=== PATIENT | female | born 1980 | race Caucasian/White ===

== ENCOUNTER 2016-11-19 11:24 | Emergency (ER) | payer BC ==
[2016-11-19 11:53] VITALS: BP 153/96
[2016-11-19] MEDS ORDERED: Aspirin Low Dose CHEW TAB* 81 MG PO ONE (12:14)
--- NOTE | 2016-11-19 14:20 | UC ---
Gato Chapman Adam, scribed for Kelsea Oliveira DO on 11/19/16 at 1155 . Cardiac HPI - HPI Summary HPI Summary: Pt is a 36 year old female presenting with chest pain. She states that she was having nausea and loose stool yesterday and struggled to get through her work shift. Sometime after she got home at 19:00 yesterday she began to have chest pain. It is located across the upper region of her chest. She also reports some SOB associated with the CP. She states that she has been having rhinorrhea for the past few weeks. She denies any dizziness, sore throat, ear ache, rash, left neck/jaw/arm pain, n/v/d/abd pain or HERNANDEZ. The pt started getting migraines approximately 1 month ago and after going to her doctor she was sent to a metal bonding worker. She had an echo, stress test, and blood work which were all normal. She has been wearing a monitor for 2 weeks (and will have it for 1 more week) to evaluate the electrical function of her heart. 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 - History of Current Complaint Stated Complaint: CHEST PAIN Hx Obtained From: Patient, Family/Sand Cutter Onset/Duration: Sudden Onset, Lasting Days, Still Present Initial Severity: Moderate Current Severity: Mild Chest Pain Location: Diffuse - Upper and mid chest Character: Dull/Aching Aggravating: Deep Breaths Alleviating: Nothing Associated Signs & Symptoms: Positive: Chest Pain, SOB, Nausea/Vomiting - Allergy/Home Medications Allergies/Adverse Reactions: Allergies Allergy/AdvReac Type Severity Reaction Status Date / Time Meloxicam Allergy Severe Anaphylatic Verified 06/12/15 20:37 Shock Hydrocodone [From Lortab] Allergy Mild Nausea Verified 06/12/15 20:37 Sulfamethoxazole Allergy Rash Verified 06/12/15 20:37 w/Trimethoprim [From Bactrim] Home Medications: Home Medications Multiple Vitamin [Multi Vitamin] 11/19/16 [History] PMH/Surg Hx/FS Hx/Imm Hx Endocrine History Of: Denies: Diabetes, Thyroid Disease Cardiovascular History Of: Denies: Cardiac Disorders, Hypertension Respiratory History Of: Reports: Asthma - seasonal Denies: COPD GI/ History Of: Denies: Ulcer - Surgical History Surgical History: Yes Surgery Procedure, Year, and Place: stomach tumor resected 2007 - Family History Known Family History: Positive: Cardiac Disease - [place] (cousin in his 40's, still living)., Hypertension - Mother, Other - Aneurysm (cousin in his 40's). HLD ( mother) - Social History Occupation: Employed Full-time Lives: Alone Alcohol Use: None Substance Use Type: None Smoking Status (MU): Never Smoked Tobacco Review of Systems Respiratory: Shortness Of Breath Cardiovascular: Chest Pain Gastrointestinal: Diarrhea - 1 Loose stool today, not watery, Other - Nausea All Other Systems Reviewed And Are Negative: Yes Physical Exam Triage Information Reviewed: Yes Appearance: Well-Appearing, No Pain Distress, Well-Nourished Vital Signs: Initial Vital Signs Temp 98.5 F 11/19/16 11:45 Pulse 74 11/19/16 11:45 Resp 16 11/19/16 11:45 BP 153/96 11/19/16 11:45 Pulse Ox 100 11/19/16 11:45 Vital Signs Reviewed: Yes Eyes: Positive: Conjunctiva Clear. Negative: Discharge ENT: Positive: Hearing grossly normal. Negative: Muffled/hoarse voice Neck exam: Normal Neck: Positive: Supple Respiratory: Positive: Chest non-tender, Lungs clear, Normal breath sounds, No respiratory distress Cardiovascular: Positive: RRR, No Murmur, Other: - min costosternal boarder tenderness at rib 3 Abdominal Exam: Normal Bowel Sounds: Positive: Present Musculoskeletal Exam: Normal Musculoskeletal: Positive: Other: - min costosternal boarder tenderness at rib 3 Neurological: Positive: Alert, Muscle Tone Normal Psychological Exam: Normal Psychological: Positive: Age Appropriate Behavior Skin Exam: Normal Skin: Positive: Other - Warm, dry, normal color Diagnostics - EKG Cardiac Rate: NL - @ 11:32. Normal rate at 64 BPM Cardiac Rhythm: Sinus: Normal ST Segment: Normal - No ST changes - Assessment/Plan Course Of Treatment: Patient declined offer to ride in ambulance to [facility]. She will go by private car. - Clinical Impression Provider Diagnoses: cp - r/o acs - Physician Notifications Discussed Patient Care With: [facility] at 12:34. Discharge - Discharge Plan Condition: Stable Disposition: AGAINST MEDICAL ADVICE Discharge Disposition Comment: Patient will drive to [facility] by private car. Referrals: Estuardo Stanley MD [Primary Care Provider] - The documentation as recorded by the Gato kaminski Adam accurately reflects the service I personally performed and the decisions made by me, Kelsea Oliveira DO.
== END 2016-11-19 13:36 | disposition left against medical advice (07) ==
LOC: UCEAST 11:24
DX: R07.89 Other chest pain (principal); R06.02 Shortness of breath; R11.2 Nausea with vomiting, unspecified; R19.7 Diarrhea, unspecified; Z88.5 Allergy status to narcotic agent; Z88.2 Allergy status to sulfonamides
CPT/HCPCS: 99212; A9270-GY; G0463

== ENCOUNTER 2016-11-19 13:43 | Emergency (ER) | payer BC ==
[2016-11-19 18:44] LABS: Hematocrit 43 % (35-47); Hemoglobin 13.7 g/dl (12.0-16.0); Mean Corpuscular HGB Conc 32 g/dl (31-36); Mean Corpuscular Hemoglobin 28 pg (27-31); Mean Corpuscular Volume 89 fL (80-97); Mean Platelet Volume 11 um3 (7.4-10.4); Red Blood Count 4.82 10^6/ul (4.0-5.4); Red Cell Distribution Width 14 % (10.5-15); White Blood Count 11.6 10^3/ul (3.5-10.8)
[2016-11-19 18:58] LABS: Albumin 3.9 g/dL (3.2-5.2); BUN/Creatinine Ratio 9.8 (8-20); Calcium 9.1 mg/dL (8.6-10.3); EGFR Non-African American 60.6 (>60); Potassium 3.9 mmol/L (3.5-5.0); Total Bilirubin 0.5 mg/dL (0.2-1.0); Total Protein 6.9 g/dL (6.4-8.9)
[2016-11-19] MEDS ORDERED: Iohexol 350* (CONTRAST) 500 ML MDV IV ONE (19:01)
--- NOTE | 2016-11-19 19:40 | RAD ---
INDICATION: Pleuritic chest pain. History of palpitations. COMPARISON: April 10, [address] and September 03, 2012 chest radiograph. TECHNIQUE: Multidetector CT images were obtained from the lung apices to the upper abdomen with 60 mL Omnipaque 350 IV contrast. Pulmonary angiogram protocol. Multiplanar reformation including with maximum intensity projection. REPORT: Minimal linear subsegmental atelectasis at the anteromedial basal segment of the LEFT lower lobe. The lungs and pleural spaces are otherwise clear. Negative for pneumothorax. Mild residual thymic tissue in the anterior mediastinum without concern. Negative for thoracic lymphadenopathy, cardiomegaly, pericardial effusion. Normal diameter thoracic aorta. No filling defects are identified from the main to the subsegmental pulmonary arteries to indicate presence of a pulmonary embolism. Unremarkable Limited images through the upper abdomen. Negative for thoracic fracture or suspicious focal osseous lesion. IMPRESSION: 1. Negative for pulmonary embolism. 2. Minimal subsegmental atelectasis at the LEFT lower lobe.
[2016-11-19 20:28] VITALS: BP 124/75
--- NOTE | 2016-11-19 21:33 | ED ---
Jesica Chapman Alok, scribed for Stevie Joaquin MD on 11/19/16 at 1959 . Progress - Progress Note Progress Note: Chest/Thorax CTA - IMPRESSION: 1. Negative for pulmonary embolism. 2. Minimal subsegmental atelectasis at the LEFT lower lobe. discussed results with patient no critical care time dx chest pain discharge home stable - EKG/XRAY/CT CT: Chest/Thorax CTA - See note Course/Dx - Diagnoses Provider Diagnoses: Chest pain The documentation as recorded by the Jesica kaminski Alok accurately reflects the service I personally performed and the decisions made by Emani mejias William, MD.
--- NOTE | 2016-11-20 18:16 | ED ---
Tushar Chapman Claudia, scribed for Sorin Nolan MD on 11/19/16 at 1740 . HPI Chest Pain - HPI Summary HPI Summary: 36 year old female presents to the ED with mid sternal CP. Pt notes sudden onset last night with intermittent episodes today as well. The pt sates that she currently has a a halter monitor placed by a furniture mover when she began having migraines 3 months ago and was referred to a furniture mover for abnormal EKG.Pt states that she has had palpitations before but has never had CP before which concerned her. Pt denies fever chills, skin diaphoresis, leg swelling or pain, NVD but admits to some sinus pressure, runny nose and itchy eyes. Pt notes the pain is a 2-3/10 and is aggravated with deep breaths. Pt denies any other associated Sx or alleviating or aggravating factors. - History of Current Complaint Chief Complaint: EDChestPainROMI Time Seen by Provider: 11/19/16 14:23 Hx Obtained From: Patient Onset/Duration: Started Days Ago - last night into today Timing: Intermittent Pain Intensity: 3 Pain Scale Used: 0-10 Numeric Chest Pain Location: Mid Sternal Chest Pain Radiates: No Character: Heaviness Aggravating Factor(s): Deep Breaths Alleviating Factor(s): Nothing Associated Signs and Symptoms: Positive: Chest Pain. Negative: Dizziness, Fever , Chills, Lightheadedness, Nausea, Edema - Allergy/Home Medications Allergies/Adverse Reactions: Allergies Allergy/AdvReac Type Severity Reaction Status Date / Time Meloxicam Allergy Severe Anaphylatic Verified 06/12/15 20:37 Shock Hydrocodone [From Lortab] Allergy Mild Nausea Verified 06/12/15 20:37 Sulfamethoxazole Allergy Rash Verified 06/12/15 20:37 w/Trimethoprim [From Bactrim] PMH/Surg Hx/FS Hx/Imm Hx Previously Healthy: Yes Endocrine/Hematology History: Denies: Hx Diabetes, Hx Thyroid Disease Cardiovascular History: Denies: Hx Hypertension Respiratory History: Reports: Hx Asthma - seasonal Denies: Hx Chronic Obstructive Pulmonary Disease (COPD) GI History: Denies: Hx Ulcer Comment Only: Other GI Disorders - gastric tumor rsected - Surgical History Surgery Procedure, Year, and Place: stomach tumor resected 2007, WISDOM TEETH Infectious Disease History: No Infectious Disease History: Denies: Hx Clostridium Difficile, Hx Hepatitis, Hx Human Immunodeficiency Virus (HIV), Hx of Known/Suspected MRSA, Hx Shingles, Hx Tuberculosis, Hx Known/ Suspected VRE, Hx Known/Suspected VRSA, History Other Infectious Disease, Traveled Outside the [place] in Last 30 Days - Family History Known Family History: Positive: Cardiac Disease - Social History Occupation: Employed Full-time Lives: With Family Alcohol Use: None Substance Use Type: Reports: None Smoking Status (MU): Never Smoked Tobacco Review of Systems Constitutional: Negative Negative: Fever, Chills, Fatigue, Skin Diaphoresis Eyes: Negative Negative: Erythema ENT: Negative Negative: Sore Throat Positive: Chest Pain Respiratory: Negative Negative: Shortness Of Breath, Cough Gastrointestinal: Negative Negative: Abdominal Pain, Diarrhea, Nausea Genitourinary: Negative Negative: dysuria, hematuria Musculoskeletal: Negative Negative: Myalgia, Edema Skin: Negative Negative: Rash Neurological: Negative Psychological: Normal All Other Systems Reviewed And Are Negative: Yes Physical Exam - Summary Physical Exam Summary: Constitutional: Well-developed, Well-nourished, Alert. (-) Distressed Skin: Warm, Dry HENT: Normocephalic; Atraumatic Eyes: Conjunctiva normal Neck: Musculoskeletal ROM normal neck. (-) JVD, (-) Stridor, (-) Tracheal deviation Cardio: Rhythm regular, rate normal, Heart sounds normal; Intact distal pulses; The pedal pulses are 2+ and symmetric. Radial pulses are 2+ and symmetric. (-) Murmur Pulmonary/Chest wall: Effort normal. (-) Respiratory distress, (-) Wheezes, (-) Rales Abd: Soft, (-) Tenderness, (-) Distension, (-) Guarding, (-) Rebound Musculoskeletal: (-) Edema Lymph: (-) Cervical adenopathy Neuro: Alert, Oriented x3 Psych: Mood and affect Normal Triage Information Reviewed: Yes Vital Signs On Initial Exam: Initial Vitals Temp Pulse Resp BP Pulse Ox 98.3 F 64 20 152/89 100 11/19/16 13:57 11/19/16 13:57 11/19/16 13:57 11/19/16 13:57 11/19/16 13:57 Vital Signs Reviewed: Yes - [place] Coma Scale Coma Scale Total: 15 Diagnostics - Vital Signs Vital Signs Temp Pulse Resp BP Pulse Ox 11/19/16 15:12 98.0 F 62 16 124/83 100 11/19/16 14:00 98.5 F 68 16 152/89 100 11/19/16 13:57 98.3 F 64 20 152/89 100 - Laboratory Lab Results: Lab Results 11/19/16 11/19/16 Range/Units 17:00 17:00 WBC 11.6 H (3.5-10.8) 10^3/ul RBC 4.82 (4.0-5.4) 10^6/ul Hgb 13.7 (12.0-16.0) g/dl Hct 43 (35-47) % MCV 89 (80-97) fL MCH 28 (27-31) pg MCHC 32 (31-36) g/dl RDW 14 (10.5-15) % Plt Count 304 (150-450) 10^3/ul MPV 11 H (7.4-10.4) um3 Neut % (Auto) 75.4 (38-83) % Lymph % (Auto) 19.2 L (25-47) % Letcher % (Auto) 3.7 (1-9) % Eos % (Auto) 0.7 (0-6) % Baso % (Auto) 1.0 (0-2) % Absolute Neuts (auto) 8.7 H (1.5-7.7) 10^3/ul Absolute Lymphs (auto) 2.2 (1.0-4.8) 10^3/ul Absolute Monos (auto) 0.4 (0-0.8) 10^3/ul Absolute Eos (auto) 0.1 (0-0.6) 10^3/ul Absolute Basos (auto) 0.1 (0-0.2) 10^3/ul Absolute Nucleated RBC 0.01 10^3/ul Nucleated RBC % 0 Sodium 137 (133-145) mmol/L Potassium 3.9 (3.5-5.0) mmol/L Chloride 107 (101-111) mmol/L Carbon Dioxide 24 (22-32) mmol/L Anion Gap 6 (2-11) mmol/L BUN 10 (6-24) mg/dL Creatinine 1.02 H (0.51-0.95) mg/dL Est GFR ( Amer) 78.0 (>60) Est GFR (Non-Af Amer) 60.6 (>60) BUN/Creatinine Ratio 9.8 (8-20) Glucose 96 (70-100) mg/dL Calcium 9.1 (8.6-10.3) mg/dL Total Bilirubin 0.50 (0.2-1.0) mg/dL AST 16 (13-39) U/L ALT 9 (7-52) U/L Alkaline Phosphatase 54 (34-104) U/L Troponin I 0.00 (<0.04) ng/mL Total Protein 6.9 (6.4-8.9) g/dL Albumin 3.9 (3.2-5.2) g/dL Globulin 3.0 (2-4) g/dL Albumin/Globulin Ratio 1.3 (1-3) Result Diagrams: 11/19/16 17:00 11/19/16 17:00 Lab Statement: Any lab studies that have been ordered have been reviewed, and results considered in the medical decision making process. - EKG 1418 Cardiac Rate: NL EKG Rhythm: Sinus Rhythm - 60 beats/min Chest Pain Course/Dx - Course Course Of Treatment: Pt is signed out awaiting CTA chest - Diagnoses Provider Diagnoses: Chest pain Discharge - Discharge Plan Condition: Stable Disposition: HOME Discharge Disposition Comment: Sign-out to Dr. Joaquin at 7pm awaiting CTA Chest Patient Education Materials: Chest Pain (ED) Referrals: Estuardo Stanley MD [Primary Care Provider] - Additional Instructions: FOLLOW UP WITH YOUR DOCTOR. RETURN TO THE EMERGENCY DEPARTMENT FOR ANY WORSENING OF YOUR CONDITION OR QUESTIONS OR CONCERNS. The documentation as recorded by the Tushar kaminski Claudia accurately reflects the service I personally performed and the decisions made by , Sorin Nolan MD.
== END 2016-11-19 20:27 | disposition home or self-care (01) ==
LOC: ED 13:43
DX: R07.9 Chest pain, unspecified (principal)
CPT/HCPCS: 36415; 71275; 80053; 84484; 85025; 99284; Q9967

== ENCOUNTER 2018-07-04 15:56 | Emergency (ER) | payer BC, OTHER ==
--- NOTE | 2018-07-04 16:46 | UC ---
Lower Extremity/Ankle HPI - HPI Summary HPI Summary: Fell onto R knee and R elbow 3 days ago. she tripped over a cord at work. R knee feeling worse, feels there is some swelling and bruising. - History of Current Complaint Chief Complaint: UCLowerExtremity Stated Complaint: KNEE AND ELBOW INJURY Time Seen by Provider: 07/04/18 16:10 Hx Obtained From: Patient Hx Last Menstrual Period: 10/30/16 ?: No Onset/Duration: Sudden Onset Severity Initially: Mild Severity Currently: Mild Pain Intensity: 3 Aggravating Factor(s): Standing, Ambulation Alleviating Factor(s): Rest Related History: Occupational Injury - Allergies/Home Medications Allergies/Adverse Reactions: Allergies Allergy/AdvReac Type Severity Reaction Status Date / Time hydrocodone Allergy Nausea Verified 07/04/18 16:12 meloxicam [From Mob[employer]ed Inference] Allergy Anaphylatic Verified 07/04/18 16:12 Shock Sulfa (Sulfonamide Allergy Rash Verified 07/04/18 16:12 Antibiotics) PMH/Surg Hx/FS Hx/Imm Hx Previously Healthy: Yes - Surgical History Surgical History: Yes Surgery Procedure, Year, and Place: stomach tumor resected 2007, WISDOM TEETH - Family History Known Family History: Positive: Cardiac Disease, Hypertension - Mother, Other - Aneurysm (cousin in his 40's). HLD (mother), Non-Contributory - Social History Alcohol Use: Rare Substance Use Type: None Smoking Status (MU): Never Smoked Tobacco Review of Systems All Other Systems Reviewed And Are Negative: Yes Constitutional: Positive: Negative Skin: Positive: Bruising Motor: Positive: Negative Musculoskeletal: Positive: Other: - R knee swelling, pain Psychological: Positive: Negative Is Patient Immunocompromised?: No Physical Exam Triage Information Reviewed: Yes Appearance: Well-Appearing Vital Signs: Initial Vital Signs Temp 97.2 F 07/04/18 16:05 Pulse 63 07/04/18 16:05 Resp 18 07/04/18 16:05 BP 126/93 07/04/18 16:05 Pulse Ox 100 07/04/18 16:05 Vital Signs Reviewed: Yes Musculoskeletal: Positive: Strength Intact - at R knee, ROM Intact - at R knee, No Edema - at R knee, Other: - R elbow unremarkble. Neurological: Positive: Alert, Muscle Tone Normal, Other: - normal gait. Diagnostics - Radiology No standard instances Radiology Interpretation Completed By: Radiologist Summary of Radiographic Findings: IMPRESSION: SOFT TISSUE SWELLING, NO FRACTURE IS SEEN. Lower Extremity Course/Dx - Course Course Of Treatment: R knee contusion w/ minimal swelling after falling at work. NO fx on today's imaging. recommended tylenol or ibuprofen for pain. - Differential Dx/Diagnosis Differential Diagnosis/HQI/PQRI: Arthritis, Contusion Provider Diagnosis: Contusion Discharge - Sign-Out/Discharge Documenting (check all that apply): Patient Departure All imaging exams completed and their final reports reviewed: Yes - Discharge Plan Condition: Good Disposition: HOME Patient Education Materials: Knee Pain (ED) Referrals: Estuardo Stanley MD [Primary Care Provider] - Additional Instructions: Follow up w/ pcp if worsening. - Billing Disposition and Condition Condition: GOOD Disposition: Home
[2018-07-04 17:19] VITALS: BP 126/93
== END 2018-07-04 17:24 | disposition home or self-care (01) ==
LOC: UCEAST 15:56
DX: S80.01XA Contusion of right knee, initial encounter (principal); W01.0XXA Fall on same level from slipping, tripping and stumbling without subsequent striking against object, initial encounter; Y92.89 Other specified places as the place of occurrence of the external cause; Y99.0 Civilian activity done for income or pay; Z88.5 Allergy status to narcotic agent; Z88.1 Allergy status to other antibiotic agents
CPT/HCPCS: 99211; G0463

== ENCOUNTER 2021-11-04 08:40 | Observation (INO) ==
[2021-11-04] MEDS ORDERED: Famotidine IV 10 MG/ML 2 ml VIAL (20 mg) IV SLOW PU ONE (09:31)
[2021-11-04] MEDS ORDERED: Lactated Ringers 1000 ml BAG 1,000 ML IV ONE (09:32)
[2021-11-04 09:51] LABS: Hematocrit 34 % (35-47); Hemoglobin 11.2 g/dL (12.0-16.0); Mean Corpuscular HGB Conc 33 g/dL (31-36); Mean Corpuscular Hemoglobin 30 pg (27-31); Mean Corpuscular Volume 92 fL (80-97); Mean Platelet Volume 10.2 fL (7.4-10.4); Platelet Count 278 10^3/uL (150-450); Red Blood Count 3.69 10^6 /uL (3.70-4.87); Red Cell Distribution Width 16 % (10-15); White Blood Count 40.6 10^3/uL (3.5-10.8)
[2021-11-04 09:59] LABS: Activated Partial Thrombo Time 26.4 seconds (26.0-38.0); INR 1.08 (0.86-1.15)
[2021-11-04 10:21] LABS: ABS Lymphocytes 0.7 10^3/ul (1.0-4.8); ABS Monocytes 0.9 10^3/ul (0-0.8); ABS Neutrophils 38.9 10^3/ul (1.5-7.7); Eosinophil % 0.1 %; Lymphocyte % 1.8 %
[2021-11-04 10:31] LABS: Albumin 4.5 g/dL (3.2-5.2); Albumin/Globulin Ratio 2.3 (1-3); Potassium 4.7 mmol/L (3.5-5.0); Total Bilirubin 0.7 mg/dL (0.2-1.0); Total Protein 6.5 g/dL (6.4-8.9); eGFR CKD-EPI 89.6 (>60)
[2021-11-04 11:29] LABS: HCG Pregnancy 0.96 mIU/mL
[2021-11-04] MEDS ORDERED: Pantoprazole VIAL 40 MG VIAL IV ONE (11:48)
[2021-11-04] MEDS ORDERED: Midazolam 10 mg/10 ml VIAL 1 mg/ml 10 ml VIAL (10 mg) ONE (14:47)
[2021-11-04] MEDS ORDERED: fentaNYL 100 mcg/2 ml 50 MCG/ML VIAL ONE (14:48)
[2021-11-04 17:39] LABS: Hematocrit 28 % (35-47); Hemoglobin 9.3 g/dL (12.0-16.0); Mean Corpuscular HGB Conc 34 g/dL (31-36); Mean Corpuscular Hemoglobin 31 pg (27-31); Mean Corpuscular Volume 92 fL (80-97); Mean Platelet Volume 9.6 fL (7.4-10.4); Platelet Count 242 10^3/uL (150-450); Red Blood Count 3.02 10^6 /uL (3.70-4.87); Red Cell Distribution Width 16 % (10-15); White Blood Count 27.5 10^3/uL (3.5-10.8)
[2021-11-04] MEDS: CMCS: Estradiol 1 mg TAB (NF) PO SCH (21:26)
[2021-11-04] MEDS: Pantoprazole VIAL 40 MG VIAL IV SCH (21:26)
[2021-11-05 05:42] LABS: ABS Eosinophils 0.1 10^3/ul (0-0.6); ABS Lymphocytes 4.2 10^3/ul (1.0-4.8); ABS Monocytes 0.6 10^3/ul (0-0.8); ABS Neutrophils 13.6 10^3/ul (1.5-7.7); Eosinophil % 0.6 %; Hematocrit 27 % (35-47); Hemoglobin 8.9 g/dL (12.0-16.0); Lymphocyte % 22.5 %; Mean Corpuscular HGB Conc 33 g/dL (31-36); Mean Corpuscular Hemoglobin 31 pg (27-31); Mean Corpuscular Volume 92 fL (80-97); Mean Platelet Volume 10.1 fL (7.4-10.4); Platelet Count 213 10^3/uL (150-450); Red Cell Distribution Width 16 % (10-15); White Blood Count 18.6 10^3/uL (3.5-10.8)
[2021-11-05] MEDS ORDERED: NFT: Coenzyme Q10 CAP (NF) 100MG PO SCH (09:00)
[2021-11-05] MEDS ORDERED: Cholecalciferol (VIT D3) 1,000 unit TAB PO SCH (09:00)
[2021-11-05] MEDS: CMCS: Estradiol 1 mg TAB (NF) PO SCH (09:54)
[2021-11-05] MEDS: Pantoprazole VIAL 40 MG VIAL IV SCH (09:55)
[2021-11-05 11:23] VITALS: BP 93/67
== END 2021-11-05 12:09 | disposition home or self-care (01) ==
LOC: ED 08:40 → SSU 08:40
PROVIDERS: ADMIT Internal Medicine; ATTEND Internal Medicine